=== PATIENT | female | born 1970 | race Caucasian/White ===

== ENCOUNTER 2016-09-25 08:52 | Emergency (ER) | payer MEDICAID ==
[~2016-09-25] VITALS: Ht 167.6 cm; Wt 64.9 kg
[~2016-09-25 08:52] MED LIST: AMOX1TAB12 PO; LITH150C PO; OXYC1TAB7 PO
[2016-09-25] MEDS ORDERED: MORPHINE SULFATE 4 MG/ML, 1ML IVPush PRN (09:30)
[2016-09-25] MEDS ORDERED: ONDANSETRON 2MG/ML, 2ML IVPush ONE (09:30)
[2016-09-25] MEDS ORDERED: SODIUM CHLORIDE FLUSH 10ML SYR IVF ONE (09:30)
[2016-09-25] MEDS ORDERED: SODIUM CHLORIDE 0.9% 1,000ML IVBOLUS ONE (09:30)
[2016-09-25] MEDS ORDERED: LORazepam 2 MG/ML, 1ML IVPush ONE (09:30)
[2016-09-25 09:53] LABS: ASPARTATE AMINO TRANSFERASE 180 U/L (15-37); BLOOD UREA NITROGEN 7 mg/dL (7-18)
[2016-09-25] MEDS ORDERED: LORazepam 2 MG/ML, 1ML ONE (10:02)
[2016-09-25] MEDS ORDERED: ONDANSETRON 2MG/ML, 2ML ONE (10:03)
[2016-09-25 10:25] LABS: DIFF TOTAL CELLS COUNTED 100 CELL DIFF
[2016-09-25 10:29] LABS: VERIFY COUNTS? YES
[2016-09-25] MEDS ORDERED: POTASSIUM CHLORIDE 20 MEQ TAB.ER.PRT PO ONE (10:30)
[2016-09-25] MEDS ORDERED: POTASSIUM CHLORIDE 20 MEQ TAB.ER.PRT ONE (10:30)
[2016-09-25 10:32] LABS: ANISOCYTOSIS 2+; MICROCYTOSIS 2+
[2016-09-25 10:41] VITALS: BP 107/72
== END 2016-09-25 11:55 | disposition home or self-care (01) ==
LOC: ED 10:57
DX: F10.229 Alcohol dependence with intoxication, unspecified (principal); R00.2 Palpitations
CPT/HCPCS: 36415; 71010; 80053; 81001; 83605; 83690; 85025; 87086; 93005; 96361; 96374; 96375; 99285; J2060; J2405; J7030

== ENCOUNTER 2016-10-01 21:57 | Emergency (ER) | payer MEDICAID ==
[~2016-10-01] VITALS: Ht 167.6 cm; Wt 64.0 kg
[2016-10-01 22:03] VITALS: BP 100/62
[2016-10-01] MEDS ORDERED: CHLORDIAZEPOXIDE 25 MG CAPSULE PO PRN (22:30)
== END 2016-10-01 22:50 | disposition home or self-care (01) ==
LOC: ED 22:43
DX: F10.229 Alcohol dependence with intoxication, unspecified (principal)
CPT/HCPCS: 99281

== ENCOUNTER 2016-11-01 10:29 | Emergency (ER) | payer MEDICAID ==
[~2016-11-01] VITALS: Ht 167.6 cm; Wt 67.6 kg
[2016-11-01 10:32] VITALS: BP 121/77
[2016-11-01] MEDS ORDERED: HYDROcodone/APAP 5/325 TABLET PO ONE (11:30)
[2016-11-01] MEDS ORDERED: IBUPROFEN 200 MG TABLET PO ONE (11:30)
[2016-11-01] MEDS ORDERED: IBUPROFEN 200 MG TABLET ONE (11:32)
[2016-11-01] MEDS ORDERED: HYDROcodone/APAP 5/325 TABLET ONE (11:32)
== END 2016-11-01 12:35 | disposition left against medical advice (07) ==
LOC: ED 12:29
DX: S40.011A Contusion of right shoulder, initial encounter (principal); Y04.0XXA Assault by unarmed brawl or fight, initial encounter; Y93.89 Activity, other specified; Y92.89 Other specified places as the place of occurrence of the external cause; Y99.8 Other external cause status
CPT/HCPCS: 72050

== ENCOUNTER 2018-02-17 14:33 | Emergency (ER) | payer MEDICAID ==
[~2018-02-17] VITALS: Ht 167.6 cm; Wt 73.7 kg
[2018-02-17 14:36] VITALS: BP 130/82
[2018-02-17] MEDS ORDERED: ACETAMINOPHEN 325 MG TABLET PO ONE (15:00)
== END 2018-02-17 15:32 | disposition left against medical advice (07) ==
LOC: ED 15:25
DX: H66.012 Acute suppurative otitis media with spontaneous rupture of ear drum, left ear (principal); F17.200 Nicotine dependence, unspecified, uncomplicated; Y04.8XXA Assault by other bodily force, initial encounter; Y93.89 Activity, other specified; Y99.8 Other external cause status; Y92.009 Unspecified place in unspecified non-institutional (private) residence as the place of occurrence of the external cause
CPT/HCPCS: 99281

== ENCOUNTER 2018-04-26 16:31 | Emergency (ER) | payer MEDICAID ==
[~2018-04-26] VITALS: Ht 170.2 cm; Wt 68.0 kg
[2018-04-26] MEDS ORDERED: THIAMINE 100MG TABLET ONE (16:46)
[2018-04-26] MEDS ORDERED: PLEASE ENTER HEIGHT AND WEIGHT MC SCH (17:00)
[2018-04-26] MEDS ORDERED: THIAMINE 100MG TABLET PO ONE (17:00)
[2018-04-26 19:49] VITALS: BP 105/56
== END 2018-04-26 19:50 | disposition home or self-care (01) ==
LOC: ED 17:25
DX: F10.220 Alcohol dependence with intoxication, uncomplicated (principal)
CPT/HCPCS: 99283

== ENCOUNTER 2018-04-27 10:15 | Emergency (ER) | payer MEDICAID ==
[~2018-04-27] VITALS: Ht 167.6 cm; Wt 75.0 kg
[2018-04-27 14:15] VITALS: BP 145/76
== END 2018-04-27 15:38 | disposition home or self-care (01) ==
LOC: ED 10:26
DX: F10.220 Alcohol dependence with intoxication, uncomplicated (principal)
CPT/HCPCS: 99283

== ENCOUNTER 2018-06-14 10:39 | Emergency (ER) | payer MEDICAID ==
[~2018-06-14] VITALS: Ht 170.2 cm; Wt 77.2 kg
[2018-06-14 10:42] VITALS: BP 145/82
--- NOTE | 2018-06-14 10:43 | NUR ---
Pt BIB [facility]-c/o ETOH intoxication and states she wants detox. Pt ambulatory without assistance, strong ETOH odor. Pt states incontinent of stool. Pt provided with hospital gown, soap and water and towels to get cleaned up. Pt denies other needs.
[2018-06-14] MEDS ORDERED: THIAMINE 100MG TABLET ONE (10:55)
[2018-06-14] MEDS ORDERED: ONDANSETRON ODT 4 MG ONE (10:56)
[2018-06-14] MEDS ORDERED: THIAMINE 100MG TABLET PO ONE (11:00)
[2018-06-14] MEDS ORDERED: ONDANSETRON ODT 4 MG PO ONE (11:00)
--- NOTE | 2018-06-14 11:00 | NUR ---
Pt medicated per JUL. Pt requesting Ativan. Pt to CT via fabio.
--- NOTE | 2018-06-14 11:44 | NUR ---
Patient/Caregiver given discharge instructions and they have confirmed that they understand the instructions. Patient ambulatory with steady gait.
--- NOTE | 2018-06-14 11:45 | NUR ---
PT IS A/OX4 AND ABLE TO FOLLOW INSTRUCTIONS TO GET DRESSED. PT STANDIGN UP AND PUTTING PANTS ON. IS HAPPY WITH DISCHARGE DISPOSITION AT THIS TIME.
== END 2018-06-14 11:47 | disposition home or self-care (01) ==
LOC: ED 11:40
DX: S06.0X0A Concussion without loss of consciousness, initial encounter (principal); S09.8XXA Other specified injuries of head, initial encounter; F10.220 Alcohol dependence with intoxication, uncomplicated; W22.8XXA Striking against or struck by other objects, initial encounter; Y93.89 Activity, other specified; Y92.89 Other specified places as the place of occurrence of the external cause; Y99.8 Other external cause status
CPT/HCPCS: 70450; 99284; Q0162

== ENCOUNTER 2019-11-20 21:29 | Emergency (ER) | payer MEDICAID ==
[~2019-11-20] VITALS: Ht 167.6 cm; Wt 84.0 kg
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
--- NOTE | 2019-11-20 22:53 | NUR ---
PT IN ULTRASOUND.
--- NOTE | 2019-11-20 23:22 | NUR ---
URINE SAMPLE COLLECTED.
[2019-11-20 23:23] LABS: BASOPHILS # (AUTO) 0.02 x10^3/uL (0-0.1); BASOPHILS % (AUTO) 1 % (0-1); EOSINOPHILS # (AUTO) 0.18 x10^3/uL (0-0.4); EOSINOPHILS % (AUTO) 4 % (1-7); LYMPHOCYTES # (AUTO) 1.92 x10^3/uL (1-3.4); LYMPHOCYTES % (AUTO) 42 % (22-44); MD NO; MEAN CORPUSCULAR HEMOGLOBIN 31.9 pg (27.0-34.8); MEAN CORPUSCULAR HGB CONC 33.6 g/dL (32.4-35.8); MEAN PLATELET VOLUME 7.8 fL (7.4-10.4); MONOCYTES # (AUTO) 0.41 x10^3/uL (0.2-0.8); MONOCYTES % (AUTO) 9 % (2-9); NEUTROPHILS # (AUTO) 2.05 x10^3/uL (1.8-6.8); NEUTROPHILS % (AUTO) 45 % (42-75); PLATELET COUNT 120 x10^3/uL (130-400); RED BLOOD COUNT 4.58 x10^6/uL (3.82-5.3); RED CELL DISTRIBUTION WIDTH 15.7 % (9.6-15.2)
[2019-11-20 23:30] VITALS: BP 124/80
[2019-11-20 23:36] LABS: ALBUMIN 3.3 g/dL (3.4-5.0); ANION GAP 9 mmol/L (5-15); CALCIUM 8.1 mg/dL (8.5-10.1); CHLORIDE 107 mmol/L (98-107)
[2019-11-20 23:40] LABS: ALANINE AMINOTRANSFERASE 53 U/L (12-78); ALKALINE PHOSPHATASE 124 U/L (45-117); BILIRUBIN,TOTAL 0.3 mg/dL (0.2-1.0); CREATININE 0.64 mg/dL (0.55-1.02); TOTAL PROTEIN 7.2 g/dL (6.4-8.2)
[2019-11-21 00:14] LABS: MICROSCOPIC NOT IND
== END 2019-11-20 23:59 | disposition left against medical advice (07) ==
LOC: ED 23:00
DX: R10.84 Generalized abdominal pain (principal); F10.20 Alcohol dependence, uncomplicated; F17.200 Nicotine dependence, unspecified, uncomplicated; R19.7 Diarrhea, unspecified; R11.0 Nausea; Z86.19 Personal history of other infectious and parasitic diseases; Y90.0 Blood alcohol level of less than 20 mg/100 ml
CPT/HCPCS: 36415; 76700; 80053; 80307; 81003; 83690; 83735; 85025; 99284

== ENCOUNTER 2020-02-15 15:02 | Emergency (ER) | payer MEDICAID ==
[~2020-02-15] VITALS: Ht 165.1 cm; Wt 65.5 kg
--- NOTE | 2020-02-15 15:13 | NUR ---
BIB [facility] FROM [facility] COMPLAINING OF YELLOWING OF EYES X2 DAYS. PT ALSO C/O LOWER ABDOMINAL PAIN. ETOH DAILY ABOUT 1 PINT VODKA AND 10 BEERS. PT STOOD FROM [facility] INTO BATHROOM TO OBTAIN UA INDEPENDENTLY. NAD NOTED. PT IN ED [facility], CHANGED INTO GOWN, BP AND SPO2 IN PLACE, SIDE RAILS UP, CALL LIGHT IN REACH. AWAITING MAKI GIRARD.
[2020-02-15] MEDS ORDERED: ONDANSETRON 2MG/ML, 2ML IVPush ONE (15:30)
[2020-02-15] MEDS ORDERED: SODIUM CHLORIDE FLUSH 10ML SYR IVF ONE (15:30)
[2020-02-15] MEDS ORDERED: SODIUM CHLORIDE 0.9% 1,000ML IVBOLUS ONE (15:30)
[2020-02-15] MEDS ORDERED: ONDANSETRON 2MG/ML, 2ML ONE (15:37)
--- NOTE | 2020-02-15 15:45 | NUR ---
IVF INFUSING PER EMAR, LAB AT BEDSIDE. PT WATCHING TELEVISION. NAD NOTED.
[2020-02-15 16:06] LABS: ALANINE AMINOTRANSFERASE 61 U/L (12-78); ALBUMIN 2.2 g/dL (3.4-5.0); ANION GAP 11 mmol/L (5-15); CALCIUM 7.7 mg/dL (8.5-10.1); CHLORIDE 99 mmol/L (98-107)
[2020-02-15 16:07] LABS: MEAN CORPUSCULAR HGB CONC 31.9 g/dL (32.4-35.8); MEAN PLATELET VOLUME 6.7 fL (7.4-10.4); PLATELET COUNT 242 x10^3/uL (130-400); RED BLOOD COUNT 2.86 x10^6/uL (3.82-5.3); RED CELL DISTRIBUTION WIDTH 19.4 % (9.6-15.2)
[2020-02-15 16:09] LABS: ALKALINE PHOSPHATASE 213 U/L (45-117); CREATININE 0.49 mg/dL (0.55-1.02); TOTAL PROTEIN 6.4 g/dL (6.4-8.2)
[2020-02-15 16:29] LABS: MD YES
[2020-02-15 16:31] LABS: ANISOCYTOSIS 2+; BASOS% (MANUAL) 2 % (0-1); EOS% (MANUAL) 2 % (1-7); LYMPH#(MANUAL) 2.05 x10^3/uL (1-3.4); LYMPHS% (MANUAL) 41 % (22-44); MONOS#(MANUAL) 0.35 x10^3/uL (0.3-2.7); MONOS% (MANUAL) 7 % (2-9); SEGS% (MANUAL) 48 % (42-75)
[2020-02-15 16:32] LABS: POLYCHROMASIA 1+
[2020-02-15 16:33] LABS: <PLATELET ESTIMATE> ADEQUATE; <PLT MORPHOLOGY> NORMAL PLT MORPH
--- NOTE | 2020-02-15 16:50 | NUR ---
PT RESTING IN BED, RESPIRATIONS EVEN AND UNLABORED NAD NOTED AT THIS TIME.
[2020-02-15] MEDS ORDERED: POTASSIUM CHLORIDE 20 MEQ TAB.ER.PRT ONE (16:59)
[2020-02-15] MEDS ORDERED: THIAMINE 100MG TABLET PO ONE (17:00)
[2020-02-15] MEDS ORDERED: POTASSIUM CHLORIDE 20 MEQ TAB.ER.PRT PO ONE (17:00)
[2020-02-15] MEDS ORDERED: LORazepam 1MG TABLET PO ONE (17:00)
[2020-02-15] MEDS ORDERED: POTASSIUM CHLORIDE 20 MEQ PACKET ONE (17:01)
[2020-02-15] MEDS ORDERED: LORazepam 1MG TABLET ONE (17:18)
[2020-02-15] MEDS ORDERED: THIAMINE 100MG TABLET ONE (17:18)
--- NOTE | 2020-02-15 17:24 | NUR ---
PT TAKING PO FLUIDS WITH MEDICATION WELL. WATCHING TELEVISION. NAD NOTED.
[2020-02-15 18:33] VITALS: BP 100/71
--- NOTE | 2020-02-15 18:52 | NUR ---
REPORT TO JUAN R RODRIGUEZ.
--- NOTE | 2020-02-15 19:12 | NUR ---
PATIENT RESTING IN BED IN NO APPARENT DISTRESS. PATIENT AMBULATED TO ASSESS READINESS FOR D/C. PATIENT WALKED 50 FEET WITHOUT DIFFICULTY OR ASSISTANCE. SHE AMBULATED WITH A STEADY GAIT. PREPARING TO DC VIA TAXI VOUCHER.
== END 2020-02-15 19:19 | disposition home or self-care (01) ==
LOC: ED 15:20
DX: F10.229 Alcohol dependence with intoxication, unspecified (principal); F41.1 Generalized anxiety disorder; R19.7 Diarrhea, unspecified; R10.84 Generalized abdominal pain; R94.31 Abnormal electrocardiogram [ECG] [EKG]; F17.210 Nicotine dependence, cigarettes, uncomplicated; Y90.0 Blood alcohol level of less than 20 mg/100 ml
CPT/HCPCS: 36415; 76700; 80053; 80307; 82140; 83690; 85025; 93005; 96361; 96374; 99285; 99406; J2405; J7030

== ENCOUNTER 2020-03-13 13:59 | Emergency (ER) | payer MEDICAID ==
[~2020-03-13] VITALS: Ht 162.6 cm; Wt 68.0 kg
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
[2020-03-13] MEDS ORDERED: ACETAMINOPHEN 500 MG TABLET ONE (14:46)
--- NOTE | 2020-03-13 14:55 | NUR ---
PT TO CT AT THIS TIME
[2020-03-13] MEDS ORDERED: ACETAMINOPHEN 650 MG/20.3 ML UDC PO/NG ONE (15:00)
[2020-03-13 15:31] LABS: BASOPHILS % (AUTO) 2 % (0-1); EOSINOPHILS % (AUTO) 1 % (1-7); LYMPHOCYTES % (AUTO) 33 % (22-44); MEAN CORPUSCULAR HEMOGLOBIN 33.6 pg (27.0-34.8); MEAN CORPUSCULAR HGB CONC 32.4 g/dL (32.4-35.8); MEAN PLATELET VOLUME 7.8 fL (7.4-10.4); MONOCYTES % (AUTO) 12 % (2-9); NEUTROPHILS % (AUTO) 52 % (42-75); PLATELET COUNT 397 x10^3/uL (130-400); RED BLOOD COUNT 2.89 x10^6/uL (3.82-5.3); RED CELL DISTRIBUTION WIDTH 17.5 % (9.6-15.2)
[2020-03-13 15:36] LABS: MD NO
[2020-03-13 15:40] VITALS: BP 110/80
[2020-03-13 15:43] LABS: ALBUMIN 1.6 g/dL (3.4-5.0); ANION GAP 7 mmol/L (5-15); CHLORIDE 106 mmol/L (98-107)
[2020-03-13 15:46] LABS: ALANINE AMINOTRANSFERASE 43 U/L (12-78); ALKALINE PHOSPHATASE 184 U/L (45-117); BILIRUBIN,TOTAL 9.1 mg/dL (0.2-1.0); CREATININE 0.49 mg/dL (0.55-1.02); TOTAL PROTEIN 7.1 g/dL (6.4-8.2)
--- NOTE | 2020-03-13 16:00 | NUR ---
PT BECOMING INCREASINGLY AGITATED, PT STATES THE TYELENOL "HASNT DONE SHIT" ERMD UPDATED P
[2020-03-13] MEDS ORDERED: LORazepam 1MG TABLET ONE (16:17)
[2020-03-13] MEDS ORDERED: LORazepam 1MG TABLET PO ONE (16:30)
[2020-03-13] MEDS ORDERED: IBUPROFEN 600 MG TABLET ONE (16:44)
[2020-03-13] MEDS ORDERED: IBUPROFEN 600 MG TABLET PO ONE (17:00)
== END 2020-03-13 17:01 | disposition home or self-care (01) ==
LOC: ED 16:30
DX: S09.90XA Unspecified injury of head, initial encounter (principal); F10.20 Alcohol dependence, uncomplicated; Y04.8XXA Assault by other bodily force, initial encounter; Y93.89 Activity, other specified; Y92.488 Other paved roadways as the place of occurrence of the external cause; Y99.8 Other external cause status; Y90.0 Blood alcohol level of less than 20 mg/100 ml
CPT/HCPCS: 36415; 70450; 80053; 80307; 85025; 99284

== ENCOUNTER 2020-03-31 04:33 | Emergency (ER) | payer MEDICAID ==
[~2020-03-31] VITALS: Ht 167.6 cm; Wt 67.0 kg
[2020-03-31 04:41] VITALS: BP 107/70
[2020-03-31] MEDS ORDERED: ONDANSETRON ODT 4 MG PO ONE (05:30)
[2020-03-31] MEDS ORDERED: GABAPENTIN 300 MG CAPSULE PO ONE (05:30)
[2020-03-31] MEDS ORDERED: ONDANSETRON ODT 4 MG ONE (05:49)
[2020-03-31] MEDS ORDERED: GABAPENTIN 300 MG CAPSULE ONE (05:49)
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
== END 2020-03-31 09:08 | disposition home or self-care (01) ==
LOC: ED 05:17
DX: G62.1 Alcoholic polyneuropathy (principal); F10.220 Alcohol dependence with intoxication, uncomplicated; Y90.9 Presence of alcohol in blood, level not specified
CPT/HCPCS: 99283; Q0162

== ENCOUNTER 2020-04-13 19:43 | Emergency (ER) | payer MEDICAID ==
[~2020-04-13] VITALS: Ht 160 cm; Wt 69.2 kg
[2020-04-13 20:00] VITALS: BP 104/71
--- NOTE | 2020-04-13 20:42 | NUR ---
PT SEEN AND IMMEDIATELY D/C BY DR. JOSEPH. PT STATES SHE "WANTS TO LEAVE ANYWAY". HOWEVER, WHEN PT PROVIDED D/C SUMMARY, PT REFUSES TO LEAVE. PT REFUSING D/C VS. SECURITY CALLED TO ESCORT PT OUT TO LOBBY FOR D/C HOME. PT AMBULATORY WITH STEADY GAIT FOR D/C WITH SECURITY.
== END 2020-04-13 21:25 ==
LOC: ED 20:16
DX: F10.220 Alcohol dependence with intoxication, uncomplicated (principal); M79.671 Pain in right foot; M79.672 Pain in left foot; R00.0 Tachycardia, unspecified; F17.200 Nicotine dependence, unspecified, uncomplicated; Y90.9 Presence of alcohol in blood, level not specified
CPT/HCPCS: 99283

== ENCOUNTER 2020-10-20 16:45 | Emergency (ER) | payer MEDICAID ==
[~2020-10-20] VITALS: Ht 165.1 cm; Wt 75.0 kg
--- NOTE | 2020-10-20 16:45 | NUR ---
Pt assited with one person minimal assist by EMS staff from EMS gurney in hallway to bed in room. Pt assisted into gown, placed on monitor, and side rails up x2 with call light in reach.
--- NOTE | 2020-10-20 18:00 | NUR ---
in to see pt and diet tray ordered.
[2020-10-20 18:31] LABS: ANION GAP 10 mmol/L (5-15); CALCIUM 8.6 mg/dL (8.5-10.1); CHLORIDE 105 mmol/L (98-107)
[2020-10-20 18:40] LABS: BASOPHILS % (AUTO) 3 % (0-1); EOSINOPHILS % (AUTO) 2 % (1-7); LYMPHOCYTES % (AUTO) 27 % (22-44); MD NO; MEAN CORPUSCULAR HGB CONC 31.6 g/dL (32.4-35.8); MEAN PLATELET VOLUME 7.9 fL (7.4-10.4); MONOCYTES % (AUTO) 17 % (2-9); NEUTROPHILS % (AUTO) 51 % (42-75); PLATELET COUNT 144 x10^3/uL (130-400); RED BLOOD COUNT 3.46 x10^6/uL (3.82-5.3)
--- NOTE | 2020-10-20 18:43 | NUR ---
Assisted pt to restroom and back to bed with dinner tray set up for her. Pt eating now. Will have MD come in for recheck.
--- NOTE | 2020-10-20 19:38 | NUR ---
Labs reviewed and chart marked for MD recheck. Pt completing dinner now and resting in bed comfortably.
--- NOTE | 2020-10-20 19:46 | NUR ---
Pt assisted to restroom and back to bed. Pt states her jaw is hurting on both sides but denies knowledge of any trauma or dental pain in those areas. Awaiting MD recheck and will notify then.
[2020-10-20 20:07] VITALS: BP 127/76
== END 2020-10-20 20:09 | disposition home or self-care (01) ==
LOC: ED 20:07
DX: F10.229 Alcohol dependence with intoxication, unspecified (principal); Z72.9 Problem related to lifestyle, unspecified; F17.200 Nicotine dependence, unspecified, uncomplicated; Y90.0 Blood alcohol level of less than 20 mg/100 ml
CPT/HCPCS: 36415; 80048; 80320; 85025; 99283; G0480